=== PATIENT | male | born 1965 | race African-American/Black ===

== ENCOUNTER → 2024-06-10 | Day surgery (SDC) | payer OTHER ==
[2024-06-05 09:29] LABS: BASOPHILS # (AUTO) 0.1 (0.0-0.1); BASOPHILS % 1.6 % (0.0-1.0); EOSINOPHILS # (AUTO) 0.1 (0.0-0.4); EOSINOPHILS % 1.6 % (0.0-6.0); HEMATOCRIT 40.3 % (38.2-49.6); HEMOGLOBIN 14.2 g/dL (14.0-18.0); LYMPHOCYTES # (AUTO) 1.6 (1.0-3.2); LYMPHOCYTES % 44.2 % (18.0-39.1); MEAN CORPUSCULAR HEMOGLOBIN 30.5 pg (28-32); MEAN CORPUSCULAR HGB CONC 35.2 g/dL (31-35); MEAN CORPUSCULAR VOLUME 86.7 fL (81-99); MONOCYTES # (AUTO) 0.7 (0.2-0.8); MONOCYTES % 17.8 % (4.4-11.3); NEUTROPHILS # (AUTO) 1.3 (2.1-6.9); NEUTROPHILS % 34.8 % (38.7-80.0); PLATELET COUNT 196 x10e3/uL (140-360); RED BLOOD COUNT 4.65 x10e6/uL (4.3-5.7); RED CELL DISTRIBUTION WIDTH 11.9 % (11.7-14.4); WHITE BLOOD COUNT 3.71 x10e3/uL (4.8-10.8)
[2024-06-05 09:53] LABS: ANION GAP 16.7 mmol/L (8-16); CALCIUM 8.9 mg/dL (8.4-10.2); CREATININE, SERUM 0.94 mg/dL (0.72-1.25); POTASSIUM 3.7 mmol/L (3.5-5.1)
[~2024-06-10] MED LIST: AMLOD-VALSA-HC1 EACH PO; CEPHALEXIN500 MG PO; DEXAMETHASONE SOD PHOS INJ 4 MG/ML SDV ONE; EPHEDRINE SULFATE INJ 50 MG/ML VIAL ONE; ESMOLOL HCL 100MG/10ML 10 MG/ML VIAL ONE; FAMOTIDINE 20 MG/2 ML VIAL IV ONE; FARXIGA10 MG PO; FENTANYL CITRATE/PF 100MCG/2 ML INJ ONE; GLYCOPYRROLATE INJ 0.2 MG/ML VIAL ONE; KETAMINE 50MG/5ML SYR ONE; LABETALOL HCL 20 ML ONE; LIDOCAINE HCL 2% LOCAL INJ 5 ML SDV VIAL INJ ONE; METFORMIN HCL850 MG PO; METOCLOPRAMIDE HCL 10 MG/2ML VIAL ONE; METOPROLOL TARTRATE INJ 1 MG/ML VIAL ONE; MIDAZOLAM HCL 2 MG/2 ML VIAL ONE; MULTI-VITAMIN1 EACH PO; ONDANSETRON HCL INJ 2MG/ML 2ML 2 MG/ML VIAL ONE; OZEMPIC0.25 MG/02 SC; PHENYLEPHRINE HCL 1% 10 MG/ML VIAL ONE; PROPOFOL IV EMULSION 10 MG/ML 20 ML VIAL ONE; ROSUVASTATIN CA10 MG PO
[2024-06-10] MEDS: HYDRALAZINE HCL 20 MG/ML VIAL ONE (09:00)
[2024-06-10 09:33] VITALS: BP 184/120; PULSE 81; RESP 18; O2SAT 97
[2024-06-10] MEDS: CEFAZOLIN SODIUM 2 GM ONE (10:02)
[2024-06-10] MEDS: LACTATED RINGER'S 1,000 ML ONE (10:02)
== END | disposition home or self-care (01) ==
LOC: OR 05:00
PROVIDERS: ATTEND Podiatrist Foot Surgery
DX: S93.321A Subluxation of tarsometatarsal joint of right foot, initial encounter (principal); M20.41 Other hammer toe(s) (acquired), right foot; S93.311A Subluxation of tarsal joint of right foot, initial encounter; Q62.11 Congenital occlusion of ureteropelvic junction; I10 Essential (primary) hypertension; E11.9 Type 2 diabetes mellitus without complications; K21.9 Gastro-esophageal reflux disease without esophagitis; M06.9 Rheumatoid arthritis, unspecified; X58.XXXA Exposure to other specified factors, initial encounter; Z01.810 Encounter for preprocedural cardiovascular examination; Z01.812 Encounter for preprocedural laboratory examination; Z01.818 Encounter for other preprocedural examination; Z79.84 Long term (current) use of oral hypoglycemic drugs; Z79.85 Long-term (current) use of injectable non-insulin antidiabetic drugs
CPT/HCPCS: 28122; 28285 ×2; 28292; 28730; 36415 ×2; 71046; 73620; 80048; 82948; 85025; 93005; C1713 ×3; J0360; J1100; J2003; J2250; J2371; J2405; J2704; J2765; J3010; J3490; J7121

== ENCOUNTER → 2024-07-01 | Day surgery (SDC) | payer OTHER ==
[~2024-07-01] MED LIST changes: -DEXAMETHASONE SOD PHOS INJ 4 MG/ML SDV ONE; -EPHEDRINE SULFATE INJ 50 MG/ML VIAL ONE; -ESMOLOL HCL 100MG/10ML 10 MG/ML VIAL ONE; -FAMOTIDINE 20 MG/2 ML VIAL IV ONE; -GLYCOPYRROLATE INJ 0.2 MG/ML VIAL ONE; -KETAMINE 50MG/5ML SYR ONE; -LABETALOL HCL 20 ML ONE; -METOCLOPRAMIDE HCL 10 MG/2ML VIAL ONE; -METOPROLOL TARTRATE INJ 1 MG/ML VIAL ONE; -MIDAZOLAM HCL 2 MG/2 ML VIAL ONE; -ONDANSETRON HCL INJ 2MG/ML 2ML 2 MG/ML VIAL ONE; -PHENYLEPHRINE HCL 1% 10 MG/ML VIAL ONE
[2024-07-01] MEDS: LACTATED RINGER'S 1,000 ML ONE (11:11)
[2024-07-01 14:45] VITALS: BP 132/77; PULSE 74; RESP 16; O2SAT 96
== END | disposition home or self-care (01) ==
LOC: OR 10:35
PROVIDERS: ATTEND Internal Medicine Gastroenterology
DX: K29.60 Other gastritis without bleeding (principal); K29.50 Unspecified chronic gastritis without bleeding; K31.89 Other diseases of stomach and duodenum; K20.90 Esophagitis, unspecified without bleeding; K22.89 Other specified disease of esophagus; K44.9 Diaphragmatic hernia without obstruction or gangrene; I10 Essential (primary) hypertension; Z71.89 Other specified counseling; E11.9 Type 2 diabetes mellitus without complications; E78.5 Hyperlipidemia, unspecified; Z79.84 Long term (current) use of oral hypoglycemic drugs; Z79.85 Long-term (current) use of injectable non-insulin antidiabetic drugs; Z79.1 Long term (current) use of non-steroidal anti-inflammatories (NSAID); Z79.899 Other long term (current) drug therapy; Z68.30 Body mass index [BMI] 30.0-30.9, adult; Z71.3 Dietary counseling and surveillance
CPT/HCPCS: 36415; 43239; 82948; J2003; J2470; J2704; J3010; J7121